=== PATIENT | female | born 1935 | race American Indian/Alaskan Native ===

== ENCOUNTER 2017-03-26 09:59 | Day surgery (SDC) | payer MEDICARE ==
[2017-03-26 10:34] VITALS: BMI 30.1
[2017-03-26] MEDS ORDERED: Propofol 10 mg/ml Inj (20 ML) ONE (12:38)
[2017-03-26] MEDS ORDERED: Lidocaine Hydrochloride 5 ML INJ ONE (12:38)
[2017-03-26] MEDS ORDERED: Lactated Ringer's 500 ML IV SCH (13:00)
[2017-03-26 13:35] VITALS: TEMP 96.7
[2017-03-26 14:05] VITALS: O2SAT 100
[2017-03-26 14:07] VITALS: BP 166/85; PULSE 64; RESP 14
== END 2017-03-26 14:16 | disposition home or self-care (01) ==
LOC: C.ENDO 09:59
PROVIDERS: ATTEND Internal Medicine Gastroenterology
DX: D12.4 Benign neoplasm of descending colon (principal); K64.8 Other hemorrhoids
CPT/HCPCS: 45388; 88305; J2704; J7120